=== PATIENT | female | born 1950 | race Caucasian/White ===

== ENCOUNTER 2016-11-07 17:32 | Inpatient (IN) | payer MEDICARE, OTHER ==
[~2016-11-07] VITALS: Ht 154.4 cm; Wt 87.1 kg
[~2016-11-07 17:32] MED LIST: ASCO500C2 PO; ATEN50TA41 PO; CEPH-368 PO; DOCU-30 PO; ESCI20TA10 PO; FERR324T5 PO; IBUP800T PO; LEVO25TA2 PO; LORA-702 PO; OMEP-110 PO; OMEP20CA9 PO; SOLI10TA PO; SUCR1ORA2 PO
[2016-11-07] MEDS ORDERED: SODIUM CHLORIDE FLUSH 10ML SYR IVF ONE ×2 (18:00→18:30)
[2016-11-07] MEDS ORDERED: ASPIRIN 81 MG TABLET CHEW PO ONE (18:00)
[2016-11-07] MEDS ORDERED: ASPIRIN 81 MG TABLET CHEW ONE (18:19)
[2016-11-07] MEDS ORDERED: DILTIAZEM 5 MG/ML, 5ML ONE (18:28)
[2016-11-07] MEDS ORDERED: DILTIAZEM 5 MG/ML, 5ML IV ONE (18:30)
[2016-11-07 18:44] LABS: BLOOD UREA NITROGEN 20 mg/dL (7-18)
[2016-11-07 18:50] LABS: ASPARTATE AMINO TRANSFERASE 30 U/L (15-37); IS PT STATUS REG ER OR PRE ER? YES
[2016-11-07] MEDS ORDERED: FUROSEMIDE 40 MG/4 ML IV ONE (19:00)
[2016-11-07] MEDS ORDERED: FUROSEMIDE 40 MG/4 ML ONE (19:12)
[2016-11-07] MEDS ORDERED: DILTIAZEM 125 MG in SODIUM CHLORIDE 0.9% 100 ML IV PRN (20:30)
[2016-11-07] MEDS ORDERED: OMEPRAZOLE 20 MG CAPSULE.DR PO SCH (21:00)
[2016-11-07] MEDS ORDERED: POLYETHYLENE GLYCOL 17 GM PACKET PO PRN (21:00)
[2016-11-07] MEDS ORDERED: ONDANSETRON 2MG/ML, 2ML IVPush PRN (21:00)
[2016-11-07] MEDS ORDERED: ASCORBIC ACID 500 MG TABLET PO SCH (21:00)
[2016-11-07] MEDS ORDERED: ACETAMINOPHEN 325 MG TABLET PO PRN (21:00)
[2016-11-07] MEDS ORDERED: BISACODYL 10 MG SUPP PR PRN (21:00)
[2016-11-07] MEDS: SODIUM CHLORIDE FLUSH 3ML SYRINGE IVF SCH (21:00)
[2016-11-07 21:05] VITALS: BP 150/88
[2016-11-07] MEDS ORDERED: HEPARIN 5,000 UNITS/ML, 1ML IV ONE (21:30)
[2016-11-07] MEDS ORDERED: HEPARIN 5,000 UNITS/ML, 1ML IV PRN (21:30)
[2016-11-07] MEDS ORDERED: ASCO500T8 PO (21:45)
[2016-11-07] MEDS ORDERED: DIPH25CA61 PO (21:45)
[2016-11-07] MEDS ORDERED: OMEP-110 PO (21:45)
[2016-11-07] MEDS: ESCITALOPRAM 20 MG HOMEMEDPO SCH (22:00)
[2016-11-07] MEDS: ATENOLOL 50 MG TABLET PO SCH (22:22)
[2016-11-07] MEDS: ASCORBIC ACID 500 MG TABLET PO SCH (22:22)
[2016-11-07] MEDS: DIPHENHYDRAMINE 25 MG CAPSULE PO SCH (22:22)
[2016-11-07] MEDS: HEPARIN 25,000 UNITS/500ML PMX 500 ML IV PRN (23:08)
[2016-11-08] MEDS ORDERED: LORA10TA75 PO (00:58)
[2016-11-08 01:21] VITALS: BP 148/71
[2016-11-08 01:23] LABS: IS PT STATUS REG ER OR PRE ER? NO
[2016-11-08] MEDS: LEVOTHYROXINE 25 MCG TABLET PO SCH (05:03)
[2016-11-08 06:13] LABS: ASPARTATE AMINO TRANSFERASE 26 U/L (15-37); BLOOD UREA NITROGEN 20 mg/dL (7-18)
[2016-11-08 06:20] LABS: IS PT STATUS REG ER OR PRE ER? NO
[2016-11-08 08:17] VITALS: BP 133/89
[2016-11-08] MEDS ORDERED: CITALOPRAM 20 MG TABLET PO SCH (09:00)
[2016-11-08] MEDS: SENNA/DOCUSATE TABLET PO SCH ×2 (09:00→09:12)
[2016-11-08] MEDS: SODIUM CHLORIDE FLUSH 3ML SYRINGE IVF SCH ×2 (09:00→21:00)
[2016-11-08] MEDS: LORATADINE 10 MG TABLET PO SCH (09:11)
[2016-11-08] MEDS: OMEPRAZOLE 20 MG CAPSULE.DR PO SCH (09:12)
[2016-11-08] MEDS: ATENOLOL 50 MG TABLET PO SCH ×2 (09:12→21:25)
[2016-11-08 15:59] VITALS: BP 140/96
[2016-11-08] MEDS ORDERED: DILTIAZEM 5 MG/ML, 5ML IVPush ONE ×3 (17:30→18:30)
[2016-11-08] MEDS ORDERED: [UNRECOGNIZED DRUG - REMARK] MC SCH (18:30)
[2016-11-08] MEDS ORDERED: DILTIAZEM 5 MG/ML, 5ML IVPush PRN ×2 (18:30→18:32)
[2016-11-08 18:36] VITALS: BP 114/80
[2016-11-08] MEDS: ASCORBIC ACID 500 MG TABLET PO SCH (21:00)
[2016-11-08] MEDS: ESCITALOPRAM 20 MG HOMEMEDPO SCH (21:00)
[2016-11-08] MEDS: DIPHENHYDRAMINE 25 MG CAPSULE PO SCH (21:24)
[2016-11-09 00:20] VITALS: BP 138/84
[2016-11-09] MEDS: HEPARIN 25,000 UNITS/500ML PMX 500 ML IV PRN (01:00)
[2016-11-09 01:04] VITALS: BP 130/87
[2016-11-09] MEDS: LEVOTHYROXINE 25 MCG TABLET PO SCH (05:32)
[2016-11-09] MEDS: OMEPRAZOLE 20 MG CAPSULE.DR PO SCH (07:43)
[2016-11-09] MEDS: SENNA/DOCUSATE TABLET PO SCH (07:43)
[2016-11-09] MEDS: LORATADINE 10 MG TABLET PO SCH (07:43)
[2016-11-09] MEDS: SODIUM CHLORIDE FLUSH 3ML SYRINGE IVF SCH (07:43)
[2016-11-09] MEDS: ATENOLOL 50 MG TABLET PO SCH (07:43)
[2016-11-09 07:58] VITALS: BP 128/82
[2016-11-09 13:36] VITALS: BP 133/99
[2016-11-09] MEDS ORDERED: APIX2.5T PO (15:21)
== END 2016-11-09 17:33 | disposition home or self-care (01) | DRG 308 ==
LOC: ED 18:56 → EDIP 19:26 → 5SO 20:27
PROVIDERS: ADMIT Internal Medicine; ATTEND Family Medicine
DX: I48.0 Paroxysmal atrial fibrillation (principal); I50.43 Acute on chronic combined systolic (congestive) and diastolic (congestive) heart failure; D68.69 Other thrombophilia; F32.9 Major depressive disorder, single episode, unspecified; G47.33 Obstructive sleep apnea (adult) (pediatric); I11.0 Hypertensive heart disease with heart failure; K21.9 Gastro-esophageal reflux disease without esophagitis; K44.9 Diaphragmatic hernia without obstruction or gangrene; K57.90 Diverticulosis of intestine, part unspecified, without perforation or abscess without bleeding; N32.81 Overactive bladder; Z80.0 Family history of malignant neoplasm of digestive organs; Z80.8 Family history of malignant neoplasm of other organs or systems; Z83.3 Family history of diabetes mellitus; Z85.820 Personal history of malignant melanoma of skin; Z87.11 Personal history of peptic ulcer disease; Z88.2 Allergy status to sulfonamides; Z91.018 Allergy to other foods
CPT/HCPCS: 36415; 71010; 80053; 83735; 83880; 84436; 84443; 84484; 85025; 85520; 85610; 85730; 93005; 93306; 96374; 96375; J1644; J1940; Q0163

== ENCOUNTER → 2016-12-05 | Outpatient (CLI) | payer MEDICARE, OTHER ==
[~2016-12-05] MED LIST changes: +APIX2.5T PO; +ASCO500T8 PO; +DIPH25CA61 PO; +LORA10TA75 PO; +REGADENOSON 0.4 MG/5 ML SYRINGE ONE
== END | disposition home or self-care (01) ==
LOC: CFH 12:27
PROVIDERS: ATTEND Internal Medicine Cardiovascular Disease
DX: I48.1 Persistent atrial fibrillation (principal); I10 Essential (primary) hypertension
CPT/HCPCS: 78452; 93017; A9502; J2785